=== PATIENT | male | born 1990 | race Hispanic/Latino ===

== ENCOUNTER 2021-10-20 09:45 | Emergency (ER) | payer SELFPAY ==
[2021-10-20] MEDS ORDERED: Lidocaine 1%/Epinephrine 1:100K 10 ML VIAL ONE (09:57)
[2021-10-20] MEDS ORDERED: Bacitracin 1 PK ONE (10:17)
== END 2021-10-20 10:30 | disposition home or self-care (01) ==
LOC: MADERS 09:45
DX: S51.811D Laceration without foreign body of right forearm, subsequent encounter (principal)